=== PATIENT | female | born 1975 | race Caucasian/White ===

== ENCOUNTER 2020-04-27 21:53 | Emergency (ER) | payer BC ==
[2020-04-27] MEDS ORDERED: cloNIDine HCL 0.1 MG TAB ONE (22:42)
[2020-04-27] MEDS ORDERED: HYDRALAZINE HCL 20 MG/ML VIAL ONE (22:42)
[2020-04-27] MEDS ORDERED: KETOROLAC 30 MG/ML INJ ONE (22:42)
--- NOTE | 2020-04-27 23:10 | EDPHYS ---
Physician Documentation [facility] Name: Grace Orlando Age: 44 yrs Sex: Female : 1975 Arrival Date: 04/27/2020 Time: 21:56 Bed 5 Private MD: ED Physician Raul Pelaez HPI: 04/27 22:38 This 44 yrs old Female presents to ER via Ambulatory with complaints of tw4 Shoulder Pain. 22:38 The patient or guardian complains of an injury, pain, that is acute. left shoulder. tw4 Context: The problem was sustained at home, resulted from an unknown reason. Onset: The symptoms/episode began/occurred today. Modifying factors: the symptoms are alleviated by nothing. The symptoms are aggravated by lifting weight, movement. Associated signs and symptoms: The patient has no apparent associated signs or symptoms. Severity of symptoms: At their worst the symptoms were moderate, in the emergency department the symptoms are unchanged. The patient has not experienced similar symptoms in the past. 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 - Social history:: Smoking status: Patient denies any tobacco usage or history of. ROS: 22:38 Constitutional: Negative for fever, chills, and weight loss, Eyes: Negative for injury, tw4 pain, redness, and discharge, Cardiovascular: Negative for chest pain, palpitations, and edema, Respiratory: Negative for shortness of breath, cough, wheezing, and pleuritic chest pain, Abdomen/GI: Negative for abdominal pain, nausea, vomiting, diarrhea, and constipation, Back: Negative for injury and pain, Skin: Negative for injury, rash, and discoloration, Neuro: Negative for headache, weakness, numbness, tingling, and seizure. 22:38 MS/extremity: Positive for injury or acute deformity, decreased range of motion, pain, swelling, tenderness, Negative for abrasion, contusion, ecchymosis, erythema. Exam: 22:38 Constitutional: This is a well developed, well nourished patient who is awake, alert, tw4 and in no acute distress. Head/Face: Normocephalic, atraumatic. Cardiovascular: Regular rate and rhythm with a normal S1 and S2. No gallops, murmurs, or rubs. Normal PMI, no JVD. No pulse deficits. Respiratory: Lungs have equal breath sounds bilaterally, clear to auscultation and percussion. No rales, rhonchi or wheezes noted. No increased work of breathing, no retractions or nasal flaring. Abdomen/GI: Soft, non-tender, with normal bowel sounds. No distension or tympany. No guarding or rebound. No evidence of tenderness throughout. Back: No spinal tenderness. No costovertebral tenderness. Full range of motion. MS/ Extremity: Pulses equal, no cyanosis. Neurovascular intact. Full, normal range of motion. Neuro: Awake and alert, GCS 15, oriented to person, place, time, and situation. Cranial nerves II-XII grossly intact. Motor strength 5/5 in all extremities. Sensory grossly intact. Cerebellar exam normal. Normal gait. Vital Signs: 22:08 BP 193 / 117; Pulse 105; Resp 18; Temp 99.6; Pulse Ox 100% ; Weight 106.59 kg; Height 5 ll1 ft. 6 in. (167.64 cm); Pain 8/10; 22:27 BP 168 / 103; mg2 23:02 BP 162 / 106; Pulse 86; Resp 19; Pulse Ox 99% ; rr5 23:04 BP 159 / 94; Pulse 96; Resp 18; Pulse Ox 98% on R/A; mg2 22:08 Body Mass Index 37.93 (106.59 kg, 167.64 cm) ll1 MDM: 21:58 Patient medically screened. tw4 23:10 Data reviewed: vital signs, nurses notes. Data interpreted: Pulse oximetry: tw4 Interpretation: normal. Counseling: I had a detailed discussion with the patient and/or guardian regarding: the historical points, exam findings, and any diagnostic results supporting the discharge/admit diagnosis. Medication response: Toradol partially relieved the patient's pain. Response to treatment: the patient's symptoms have markedly improved after treatment, and as a result, I will discharge patient. Special discussion: I discussed with the patient/guardian in detail that at this point there is no indication for admission to the hospital. It is understood, however, that if the symptoms persist or worsen the patient needs to return immediately for re-evaluation. 04/27 22:07 Order name: Shoulder Left (2 View) XRAY tw4 04/27 23:21 Order name: Arm-Sling; Complete Time: 23:28 rr5 Administered Medications: 22:30 Drug: TORadol 60 mg Route: IM; Site: right gluteus; rr5 23:32 Follow up: Response: No adverse reaction; Pain is decreased rr5 22:33 Drug: cloNIDine 0.2 mg Route: PO; rr5 23:32 Follow up: Response: No adverse reaction; Blood pressure is lowered rr5 23:32 Not Given (Physician Discretion): hydrALAZINE 20 mg IM once rr5 Disposition: 04/27/20 23:10 Discharged to Home. Impression: Rotator cuff tear or rupture, not specified as traumatic. - Condition is Stable. - Discharge Instructions: Rotator Cuff Injury, Rotator Cuff Tendinitis. - Prescriptions for Ibuprofen 800 mg Oral Tablet - take 1 tablet by ORAL route every 8 hours As needed take with food; 30 tablet. - Medication Reconciliation Form, Thank You Letter, Antibiotic Education, Prescription Opioid Use form. - Follow up: Private Physician; When: Upon discharge from the Emergency Department; Reason: Recheck today's complaints, Continuance of care, Re-evaluation by your physician. Follow up: Elvis Lyons MD; When: Upon discharge from the Emergency Department; Reason: Recheck today's complaints, Continuance of care, Re-evaluation by your physician. Follow up: Beto Velásquez MD; When: Upon discharge from the Emergency Department; Reason: Recheck today's complaints, Continuance of care, Re-evaluation by your physician. Follow up: Uri Helms MD; When: Upon discharge from the Emergency Department; Reason: Recheck today's complaints, Continuance of care, Re-evaluation by your physician. - Problem is new. - Symptoms have improved. Signatures: Dispatcher [employer] EDRaul Lopes MD MD tw4 Alfonzo Osborne RN RN rr5 Lora Ellison RN RN ll1 Corrections: (The following items were deleted from the chart) 23:12 23:10 04/27/2020 23:10 Discharged to Home. Impression: Rotator cuff tear or rupture, tw4 not specified as traumatic. Condition is Stable. Forms are Medication Reconciliation Form, Thank You Letter, Antibiotic Education, Prescription Opioid Use. Follow up: Private Physician; When: Upon discharge from the Emergency Department; Reason: Recheck today's complaints, Continuance of care, Re-evaluation by your physician. Problem is new. Symptoms have improved. tw4 23:13 23:12 04/27/2020 23:10 Discharged to Home. Impression: Rotator cuff tear or rupture, tw4 not specified as traumatic. Condition is Stable. Discharge Instructions: Rotator Cuff Injury, Rotator Cuff Tendinitis. Prescriptions for Ibuprofen 800 mg Oral Tablet - take 1 tablet by ORAL route every 8 hours As needed take with food; 30 tablet. and Forms are Medication Reconciliation Form, Thank You Letter, Antibiotic Education, Prescription Opioid Use. Follow up: Private Physician; When: Upon discharge from the Emergency Department; Reason: Recheck today's complaints, Continuance of care, Re-evaluation by your physician. Follow up: Elvis Lyons; When: Upon discharge from the Emergency Department; Reason: Recheck today's complaints, Continuance of care, Re-evaluation by your physician. Problem is new. Symptoms have improved. tw4 23:35 23:13 04/27/2020 23:10 Discharged to Home. Impression: Rotator cuff tear or rupture, rr5 not specified as traumatic. Condition is Stable. Discharge Instructions: Rotator Cuff Injury, Rotator Cuff Tendinitis. Prescriptions for Ibuprofen 800 mg Oral Tablet - take 1 tablet by ORAL route every 8 hours As needed take with food; 30 tablet. and Forms are Medication Reconciliation Form, Thank You Letter, Antibiotic Education, Prescription Opioid Use. Follow up: Private Physician; When: Upon discharge from the Emergency Department; Reason: Recheck today's complaints, Continuance of care, Re-evaluation by your physician. Follow up: Elvis Lyons; When: Upon discharge from the Emergency Department; Reason: Recheck today's complaints, Continuance of care, Re-evaluation by your physician. Follow up: Beto Velásquez; When: Upon discharge from the Emergency Department; Reason: Recheck today's complaints, Continuance of care, Re-evaluation by your physician. Follow up: Uri Helms; When: Upon discharge from the Emergency Department; Reason: Recheck today's complaints, Continuance of care, Re-evaluation by your physician. Problem is new. Symptoms have improved. tw4
--- NOTE | 2020-04-27 23:10 | ER ---
Nurse's Notes [facility] Name: Grace Orlando Age: 44 yrs Sex: Female : 1975 Arrival Date: 04/27/2020 Time: 21:56 Bed 5 Private MD: Diagnosis: Rotator cuff tear or rupture, not specified as traumatic Presentation: 04/27 22:08 Chief complaint: Patient states: Left shoulder pain since Wednesday. No known trauma. ll1 Coronavirus screen: Client denies travel out of the [place] in the last 14 days. At this time, the client does not indicate any symptoms associated with coronavirus-19. Ebola Screen: Patient denies travel to an Ebola-affected area in the 21 days before illness onset. Initial Sepsis Screen: Does the patient meet any 2 criteria? HR > 90 bpm. No. Patient's initial sepsis screen is negative. Does the patient have a suspected source of infection? Yes: Bone or joint infection. Risk Assessment: Do you want to hurt yourself or someone else? Patient reports no desire to harm self or others. Onset of symptoms was April 23, 2020. 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 - Social history:: Smoking status: Patient denies any tobacco usage or history of. Screenin:11 Abuse screen: Denies threats or abuse. Denies injuries from another. Nutritional mg2 screening: No deficits noted. Tuberculosis screening: No symptoms or risk factors identified. Fall Risk None identified. Assessment: 22:36 General: Appears in no apparent distress. uncomfortable, Behavior is calm, cooperative, rr5 appropriate for age. Pain: Complains of pain in left shoulder Pain currently is 8 out of 10 on a pain scale. Quality of pain is described as aching, Pain began gradually, Is intermittent. Neuro: Level of Consciousness is awake, alert, obeys commands, Oriented to person, place, time, situation. Cardiovascular: Capillary refill < 3 seconds Patient's skin is warm and dry. Respiratory: Airway is patent Respiratory effort is even, unlabored, Respiratory pattern is regular, symmetrical. GI: No signs and/or symptoms were reported involving the gastrointestinal system. : No signs and/or symptoms were reported regarding the genitourinary system. EENT: No signs and/or symptoms were reported regarding the EENT system. Derm: Skin is intact, is healthy with good turgor, Skin temperature is warm. Musculoskeletal: Capillary refill < 3 seconds, Reports pain in left shoulder. 23:33 Reassessment: Patient appears in no apparent distress at this time. Patient is alert, rr5 oriented x 3, equal unlabored respirations, skin warm/dry/pink. discharge instruction given and explained without complaints made Patient states feeling better. Patient states symptoms have improved. Vital Signs: 22:08 BP 193 / 117; Pulse 105; Resp 18; Temp 99.6; Pulse Ox 100% ; Weight 106.59 kg; Height 5 ll1 ft. 6 in. (167.64 cm); Pain 8/10; 22:27 BP 168 / 103; mg2 23:02 BP 162 / 106; Pulse 86; Resp 19; Pulse Ox 99% ; rr5 23:04 BP 159 / 94; Pulse 96; Resp 18; Pulse Ox 98% on R/A; mg2 22:08 Body Mass Index 37.93 (106.59 kg, 167.64 cm) ll1 ED Course: 21:56 Patient arrived in ED. rg4 21:58 Raul Pelaez MD is Attending Physician. tw4 22:06 Alfonzo Osborne, CHARLES is Primary Nurse. rr5 22:06 Arm band placed on. ll1 22:10 Triage completed. ll1 22:28 Shoulder Left (2 View) XRAY In Process Unspecified. EDMS 22:37 Patient has correct armband on for positive identification. Bed in low position. Call rr5 light in reach. Pulse ox on. NIBP on. 23:12 Elvis Lyons MD is Referral Physician. tw4 23:12 Beto Velásquez MD is Referral Physician. tw4 23:12 Uri Helms MD is Referral Physician. tw4 23:25 Shoulder immobilizer applied on left shoulder. rr5 23:33 No provider procedures requiring assistance completed. Patient did not have IV access rr5 during this emergency room visit. Administered Medications: 22:30 Drug: TORadol 60 mg Route: IM; Site: right gluteus; rr5 23:32 Follow up: Response: No adverse reaction; Pain is decreased rr5 22:33 Drug: cloNIDine 0.2 mg Route: PO; rr5 23:32 Follow up: Response: No adverse reaction; Blood pressure is lowered rr5 23:32 Not Given (Physician Discretion): hydrALAZINE 20 mg IM once rr5 Outcome: 23:10 Discharge ordered by . tw4 23:34 Discharged to home ambulatory, with family. rr5 23:34 Condition: stable 23:34 Discharge instructions given to patient, family, Instructed on discharge instructions, follow up and referral plans. medication usage, Demonstrated understanding of instructions, follow-up care, medications, Prescriptions given X 1. 23:35 Patient left the ED. rr5 Signatures: Dispatcher [employer] EDMS Thu Nash rg4 Raul Pelaez MD MD tw4 Shelton Perez RN RN mg2 Alfonzo Osborne, CHARLES RN rr5 Lora Ellison RN RN ll1
[2020-04-28 00:17] VITALS: TEMP 99.6
[2020-04-28 00:42] VITALS: BP 159/94; O2SAT 98
--- NOTE | 2020-04-28 12:14 | RAD REPORT ---
EXAM DESCRIPTION: RAD - Shoulder Left 2 View - 04/27/2020 10:27 pm CLINICAL HISTORY: PAIN COMPARISON: No comparisons FINDINGS: Calcification in the region of the distal supraspinatus tendon is seen, likely representin g calcific tendinitis. No evidence of acute fracture or dislocation. IMPRESSION: Calcific tendinitis.
== END 2020-04-27 23:35 | disposition home or self-care (01) ==
LOC: ER 21:53
DX: M75.102 Unspecified rotator cuff tear or rupture of left shoulder, not specified as traumatic (principal); I10 Essential (primary) hypertension; Z88.1 Allergy status to other antibiotic agents; Z88.5 Allergy status to narcotic agent; Z88.6 Allergy status to analgesic agent
CPT/HCPCS: 96372; 99284; J0360